=== PATIENT | female | born 2005 | race Caucasian/White ===

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

== ENCOUNTER 2023-12-03 13:08 | Emergency (ER) | payer BC, SELFPAY ==
[2023-12-03 13:18] VITALS: BP 112/71; PULSE 101; RESP 16; TEMP 36.8; O2SAT 100
--- NOTE | 2023-12-03 13:41 | ED.URI ---
HPI - URI/Sore Throat General Chief Complaint: Upper Respiratory Infection Stated Complaint: Congestion Time Seen by Provider: 12/03/23 13:25 Source: patient Mode of arrival: ambulatory Limitations: no limitations History of Present Illness HPI Narrative: Concepcion is a 18-year-old female patient presenting to the clinic today with complaints nasal congestion x3 days. She did at home COVID test and it was negative. She states that her boss is requesting her to come in today to have a doctor's note/COVID test done. She also reports that she took an at-home test and it was positive. She denies any abdominal pain or vaginal discharge. MD elicited complaint: sore throat and nasal congestion Related Data Home Medications Medication Instructions Recorded Confirmed No Home Medications 12/03/23 12/03/23 Allergies Allergy/AdvReac Type Severity Reaction Status Date / Time pineapple Allergy Swelling Verified 07/25/22 11:32 of Lip/Tongue/Throat Review of Systems Review of Systems: Pertinent positives per HPI. Patient denies any fever, chills, rash, headache, visual changes, dizziness, cough, shortness of breath, chest pain, palpitations, nausea, vomiting, diarrhea, constipation, abdominal pain, or any urinary issues. PMFSH Comments At the time of my signature, I reviewed and agree with the nursing past medical, surgical, social, and family history. There is no relevant family history pertinent to the patient complaint. Exam Narrative: General: Well-developed, well nourished, in no apparent distress Head: Normocephalic, atraumatic Eyes: Pupils equally round and reactive to light bilaterally, EOM intact, sclera and conjunctive clear, no discharge, lids normal Ears: TMs intact and clear, ear canals clear, no drainage, grossly hearing normal. Nose: Nares patent, clear nasal discharge, no inflammation, no sinus tenderness. Mouth: Oral pharynx without lesions or masses, good dentition, MMM. Neck: Supple, trachea midline, no enlargement of anterior or posterior cervical nodes, no thyroid masses or goiter palpable. Cardio: Regular rate and rhythm, s1 and s2 normal, no murmur appreciated. Resp: Clear to auscultation bilaterally, no rhonchi, rales, wheezing or rubs Course Course Emergency Course: Portions of this record may have been created with voice recognition software. Level of Care: Express Care Visit Vital Signs Vital signs: Vital Signs Temperature 36.8 C 12/03/23 13:18 Pulse Rate 101 H 12/03/23 13:18 Respiratory Rate 16 12/03/23 13:18 Blood Pressure 112/71 12/03/23 13:18 Pulse Oximetry 100 12/03/23 13:18 Oxygen Delivery Room Air 12/03/23 13:18 Temperature 36.8 C 12/03/23 13:18 Pulse Rate 101 H 12/03/23 13:18 Respiratory Rate 16 12/03/23 13:18 Blood Pressure 112/71 12/03/23 13:18 Pulse Oximetry 100 12/03/23 13:18 Oxygen Delivery Room Air 12/03/23 13:18 Vital signs reviewed MDM - URI/Sore Throat MDM Narrative Medical decision making narrative: At the time of visit patient is resting comfortably on the exam table. Patient appears to be nontoxic. Labs: COVID test was negative in the clinic today. Plan: I suspect patient has allergic rhinitis. Patient had at home positive test. Recommend following with with Obgyn as soon as possible. Supportive measures were discussed with the patient and they voiced understanding discharge instructions and agrees to treatment plan. Return precautions reviewed Differential Diagnosis Differential diagnosis: Likely upper respiratory infection, otitis media, sinusitis, viral infection, bronchitis, influenza, pharyngitis and other (COVID) Discharge Plan Discharge Clinical Impression: Positive home test Allergic rhinitis Qualifiers: Allergic rhinitis trigger: unspecified Allergic rhinitis seasonality: unspecified Qualified Code(s): J30.9 - Allergic rhinitis, unspecified
== END 2023-12-03 13:58 | disposition home or self-care (01) ==
PROVIDERS: Emergency Provider Nurse Practitioner Family
DX: O99.519 Diseases of the respiratory system complicating pregnancy, unspecified trimester (principal); Z3A.00 Weeks of gestation of pregnancy not specified; J30.9 Allergic rhinitis, unspecified; Z20.822 Contact with and (suspected) exposure to COVID-19
CPT/HCPCS: 87426; 99213; G0463

== ENCOUNTER 2024-04-18 05:03 | Observation (INO) | payer MEDICAID, SELFPAY ==
--- NOTE | 2024-04-18 05:03 | OBADM ---
This patient, Concepcion Ho, admitted to the OB room Labor/Delivery/Recovery 106 for observation. Patient/family oriented to hospital policies and general routines including ID bracelet, bed and alarms, visiting hours, pain management, procedures, bathroom and other care routines, personal items, smoking policy, room service/diet, and visiting hours. Patient/Family are encouraged to report perceived risks to care and to ask questions if they do not understand what they are told or what they should do.
--- NOTE | 2024-04-18 05:05 | PC.NURSE ---
Pt admitted with pelvic pain/lower abdominal pain. Pt receives care with Dr. Ferguson who delivers at [facility].
[2024-04-18 05:25] VITALS: TEMP 36.6
[2024-04-18 06:45] LABS: Appearance Urine Cloudy (Clear); Bacteria Urine 4+ /hpf; Bilirubin Urine Negative (Negative); Blood Urine 2+ (Negative); Color Urine Yellow (Yellow); Glucose Urine UA Negative (Negative); Ketones Urine Negative (Negative); Leukocyte Esterase Ur 3+ LEU/UL (Negative); Nitrate Urine Positive (Negative); Non Pathogenic Casts 0-2; Protein Urine Negative (Negative); RBC Urine 0-2 /hpf (0-2); Specific Grav Ur 1.005 (1.001-1.035); Squamous Epithelial Cell Urine None Seen /hpf (Few); Urobilinogen Urine 0.2 mg/dL (<2.0); WBC Urine >100 /hpf (0-3)
[2024-04-18 06:48] LABS: Add Urine Microscopic? YES
--- NOTE | 2024-04-18 07:00 | PC.NURSE ---
Dr. Boudreaux in unit report given about this pt. Order received for CBC, IV fluid.
[2024-04-18 07:01] VITALS: BMI 27.8
[2024-04-18] MEDS: LACTATED RINGERS 1,000 ML 999 ML IV CONT (07:10)
[2024-04-18] MEDS: ACETAMINOPHEN 500 MG TABLET 1000 MG PO (07:10)
--- NOTE | 2024-04-18 07:15 | PC.NURSE ---
called Dr. Boudreaux reported UA result. order received for Rocephin.
[2024-04-18] MEDS: cefTRIAXone 2 GM/NS 100 ML 2 GM/100 ML BAG IVPB (07:30)
--- NOTE | 2024-04-18 07:45 | PC.NURSE ---
Dr. Boudreaux at bedside, discussed with patient about UTI. explained about treatment with antibiotics. pt verbalized understanding.
[2024-04-18] MEDS: ONDANSETRON INJ 4 MG/2 ML VIAL IV PUSH (07:54)
--- NOTE | 2024-04-18 08:13 | P.PNOB_ITS ---
OB - Triage/Final Diagnosis Visit Information Date of evaluation: 04/18/24 Reason for evaluation: other (abdominal pain) Comments/Additional reasons for admission: I have assessed the risk for this patient, Concepcion Edwardn, and determined that she would benefit from observation care. Evaluation Laboratory results: Laboratory Tests 04/18/24 06:29 Urine Color Yellow Urine Appearance Cloudy H Urine pH 7.0 Ur Specific [place] 1.005 Urine Protein Negative Urine Glucose (UA) Negative Urine Ketones Negative Ur Blood (Man) 2+ H Urine Nitrate Positive Urine Bilirubin Negative Urine Urobilinogen 0.2 Ur Leukocyte Esterase 3+ H Urine RBC 0-2 Urine WBC >100 H Ur Squamous Epith Cells None seen Urine Bacteria 4+ H Urine Casts 0-2 Vital signs: Vital Signs - 24 hr 04/18/24 05:30 04/18/24 05:25 Temperature 98 F Oxygen Delivery Room Air
[2024-04-18 08:21] LABS: Basophils Percent Auto 0.1 % (0.2-1.2); Eosinophils Percent Auto 0.4 % (0-4.4); Hematocrit 33.6 % (37.0-47.0); Immature Granulocyte Percent A 1.4 % (0-0.5); Lymphocytes Absolute Auto 1.36 K/mm3 (0.9-3.2); Lymphocytes Percent Auto 18.4 % (18.3-44.2); Mean Corpuscular HGB Conc 32.7 g/dl (32-36); Mean Corpuscular Hemoglobin 29.9 pg (26-34); Mean Corpuscular Volume 91.3 fl (80-100); Mean Platelet Volume 9.9 fl (7.4-10.4); Monocytes Absolute Auto 0.4 K/mm3 (0.1-0.6); Monocytes Percent Auto 5.6 % (2.6-8.5); Neutrophils Absolute Auto 5.5 K/mm3 (1.3-6.7); Neutrophils Percent Auto 74.1 % (45.5-73.1); Platelet Count Result 196 k/mm3 (150-375); Red Blood Count 3.68 M/mm3 (4.2-5.4); Red Cell Distribution Width 14.3 % (11.5-14.5); White Blood Count 7.4 K/mm3 (4.5-10.0)
--- NOTE | 2024-04-18 08:45 | PC.NURSE ---
pt feels better with pain. UTI precaution given. reinforced PO hydration. follow up with primary OB.
== END 2024-04-18 08:51 | disposition home or self-care (01) ==
PROVIDERS: Admitting Provider Student in an Organized Health Care Education/Training Program; Visit Provider Student in an Organized Health Care Education/Training Program
DX: O26.892 Other specified pregnancy related conditions, second trimester (principal); R10.9 Unspecified abdominal pain; Z3A.23 23 weeks gestation of pregnancy
CPT/HCPCS: 36415; 81001; 85025; 87077; 87086; 87088; 87186; 96374; 96375; A9270; G0378; G0379; J0696; J2405; J7120